=== PATIENT | male | born 1950 | race Caucasian/White ===

== ENCOUNTER → 2023-12-28 09:44 | Outpatient (CLI) | payer MEDICARE, SELFPAY ==
--- NOTE | 2023-12-28 | DI.MRI.S_ITS ---
PROCEDURE: MR SHOULDER RT WO CON INDICATIONS: NONTRAUMATIC COMPLETE TEAR OF RT ROTATOR CUFF TECHNIQUE: Noncontrast oblique coronal T2 fast spin echo with fat saturation, oblique sagittal T1 spin echo and T2 fast spin echo with fat saturation, axial T1 spin echo and T2 fast spin echo with fat saturation through the shoulder. COMPARISON: None. FINDINGS: Image quality: Excellent. Rotator cuff: Full-thickness tearing of the mid and anterior supraspinatus tendon the humeral insertion site, measuring roughly 20 mm anteroposterior. Low-grade articular surface tearing of the posterior supraspinatus as well as the anterior and mid infraspinatus tendon at the humeral insertion site extending the musculotendinous junction. Moderate T2 signal elevation within the infraspinatus tendon at the musculotendinous junction, indicating tendinopathy. Low-grade articular surface tearing of the upper and mid subscapularis tendon at the humeral insertion site extending to the musculotendinous junction. Teres minor is intact. Mild supraspinatus atrophy is present. Bones and bursae: No bone marrow contusions or fractures. Resection of the distal clavicle. Moderate glenohumeral joint osteoarthritis. No pathologic subacromial-subdeltoid or subcoracoid bursal fluid is present. Capsule and soft tissues: There is diffuse degenerative fraying of the glenoid labrum. The long head of the biceps tendon demonstrates normal location and morphology. The rotator interval appears normal, without fibrosis. The coracohumeral ligament is normal in thickness. IMPRESSION: 1. Postsurgical sequelae. 2. Partial-thickness and full-thickness tearing of the supraspinatus tendon with associated atrophy as above. 3. Partial-thickness tearing of the subscapularis and infraspinatus tendons. 4. Glenohumeral joint osteoarthritis associated with glenoid labral tearing. Dictated by: Alfreda Payne M.D. on 12/28/2023 at 13:29 Approved by: Alfreda Payne M.D. on 12/28/2023 at 13:32
== END ==
LOC: MRI 09:52
PROVIDERS: PCP Nurse Practitioner Family; Referring Provider Orthopaedic Surgery; Visit Provider Orthopaedic Surgery
DX: M75.121 Complete rotator cuff tear or rupture of right shoulder, not specified as traumatic (principal); M19.011 Primary osteoarthritis, right shoulder
CPT/HCPCS: 73221